=== PATIENT | male | born 1995 | race Caucasian/White ===

== ENCOUNTER 2017-09-20 17:32 | Emergency (ER) | payer SELFPAY ==
--- NOTE | 2017-09-20 20:33 | ER ---
Nurse's Notes [facility] Name: Maikel Mckinley Age: 22 yrs Sex: Male : 1995 Arrival Date: 09/20/2017 Time: 17:36 Bed 10 Private MD: Vinh Romo Diagnosis: Acute pharyngitis, unspecified Presentation: 09/20 17:58 Presenting complaint: Patient states: sore throat started yesterday, cough and nasal hj congestion started yesterday; denies fever;. Transition of care: patient was not received from another setting of care. Onset of symptoms was September 20, 2017. Care prior to arrival: None. 17:58 Method Of Arrival: Ambulatory hj 17:58 Acuity: ALEJANDRA 4 hj Triage Assessment: 17:59 General: Appears in no apparent distress. uncomfortable, Behavior is calm, cooperative, hj appropriate for age. Pain: Complains of pain in throat. EENT: No signs and/or symptoms were reported regarding the EENT system. Historical: - Allergies: 17:59 No Known Allergies; hj - Home Meds: 17:59 None [Active]; hj - PMHx: 17:59 None; hj - PSHx: 17:59 None; hj - Immunization history:: Adult Immunizations up to date. - Social history:: Smoking status: unknown. Screenin:46 Abuse screen: Denies threats or abuse. Denies injuries from another. Nutritional aj1 screening: No deficits noted. Tuberculosis screening: No symptoms or risk factors identified. Fall Risk None identified. Assessment: 17:59 Respiratory: Airway is patent Respiratory effort is even, unlabored, Respiratory hj pattern is regular, symmetrical, Breath sounds are clear. EENT: Throat. 19:46 General: Appears in no apparent distress. uncomfortable, Behavior is calm, cooperative, aj1 appropriate for age. Pain: Complains of pain in left aspect of posterior pharynx and right aspect of posterior pharynx Pain does not radiate. Neuro: Level of Consciousness is awake, alert, obeys commands, Oriented to person, place, time, situation. Cardiovascular: Patient's skin is warm and dry. Respiratory: Reports cough that is persistent Airway is patent Respiratory effort is even, unlabored, Respiratory pattern is regular, symmetrical, Breath sounds are clear bilaterally. Denies shortness of breath. GI: No signs and/or symptoms were reported involving the gastrointestinal system. : No signs and/or symptoms were reported regarding the genitourinary system. EENT: Throat is reddened bilaterally Reports nasal congestion nasal discharge. Derm: No signs and/or symptoms reported regarding the dermatologic system. Skin is pink, warm \T\ dry. normal. Musculoskeletal: No signs and/or symptoms reported regarding the musculoskeletal system. Circulation, motion, and sensation intact. 20:59 Reassessment: Patient appears in no apparent distress at this time. No changes from aj1 previously documented assessment. Patient and/or family updated on plan of care and expected duration. Pain level reassessed. Patient is alert, oriented x 3, equal unlabored respirations, skin warm/dry/pink. Vital Signs: 17:59 BP 114 / 69; Pulse 71; Resp 18; Temp 97.6(TE); Pulse Ox 99% on R/A; Weight 81.65 kg; hj Height 5 ft. 5 in. (165.10 cm); Pain 3/10; 19:46 BP 124 / 52; Pulse 57; Resp 18; Pulse Ox 100% on R/A; aj1 20:59 BP 102 / 63; Pulse 55; Resp 18; Pulse Ox 99% ; aj1 17:59 Body Mass Index 29.95 (81.65 kg, 165.10 cm) ED Course: 17:36 Patient arrived in ED. rg4 17:36 Vinh Romo DO is Private Physician. rg4 17:58 Triage completed. hj 17:59 Arm band placed on right wrist. hj 19:36 Rona Khan, RN is Primary Nurse. aj1 19:38 Clinton Maloney MD is Attending Physician. tw4 19:46 Patient has correct armband on for positive identification. Call light in reach. aj1 19:46 No provider procedures requiring assistance completed. aj1 19:48 Flu and/or RSV swab sent to lab. Strep swab sent to lab. aj1 20:32 Vinh Romo DO is Referral Physician. tw4 20:59 Patient did not have IV access during this emergency room visit. aj1 Administered Medications: No medications were administered Outcome: 20:32 Discharge ordered by . tw4 21:00 Discharged to home ambulatory. aj1 21:00 Condition: good 21:00 Discharge instructions given to patient, Instructed on discharge instructions, follow up and referral plans. medication usage, Demonstrated understanding of instructions, follow-up care, medications, Prescriptions given X 1. 21:00 Patient left the ED. aj1 Signatures: Rona Khan RN RN aj1 Bird Hines RN RN hj Garcia, Rubi rg4 Clinton Maloney MD MD tw4 Corrections: (The following items were deleted from the chart) 18:01 17:59 Pulse 71bpm; Resp 18bpm; Pulse Ox 99% RA; Temp 97.6F Temporal; 81.65 kg; Height 5 hj ft. 5 in.; BMI: 29.9; Pain 3/10; hj
--- NOTE | 2017-09-20 20:33 | EDPHYS ---
Physician Documentation [facility] Name: Maikel Mckinley Age: 22 yrs Sex: Male : 1995 Arrival Date: 09/20/2017 Time: 17:36 Bed 10 Private MD: Demetrius [facility]ly [facility] ED Physician Clinton Maloney HPI: 09/20 20:30 This 22 yrs old Male presents to ER via Ambulatory with complaints of Sore tw4 Throat, Headache, Fever, Nausea. 20:30 The patient presents with sore throat. The patient describes throat pain as dry. Onset: tw4 The symptoms/episode began/occurred yesterday. Severity of symptoms: At their worst the symptoms were moderate, in the emergency department the symptoms are unchanged. Modifying factors: The symptoms are alleviated by nothing, the symptoms are aggravated by nothing. Associated signs and symptoms: The patient has no apparent associated signs or symptoms. The patient has not experienced similar symptoms in the past. Historical: - Allergies: 17:59 No Known Allergies; hj - Home Meds: 17:59 None [Active]; hj - PMHx: 17:59 None; hj - PSHx: 17:59 None; hj - Immunization history:: Adult Immunizations up to date. - Social history:: Smoking status: unknown. ROS: 20:30 Constitutional: Negative for fever, chills, and weight loss. tw4 20:30 Constitutional: Positive for 20:30 ENT: Positive for sore throat, Negative for injury or acute deformity, drainage from ear(s), ear pain, foreign body sensation, Gum pain hearing loss, pulling at ears. Exam: 20:31 Constitutional: This is a well developed, well nourished patient who is awake, alert, tw4 and in no acute distress. Head/Face: Normocephalic, atraumatic. 20:31 Cardiovascular: Regular rate and rhythm with a normal S1 and S2. No gallops, murmurs, or rubs. Normal PMI, no JVD. No pulse deficits. Respiratory: Lungs have equal breath sounds bilaterally, clear to auscultation and percussion. No rales, rhonchi or wheezes noted. No increased work of breathing, no retractions or nasal flaring. Abdomen/GI: Soft, non-tender, with normal bowel sounds. No distension or tympany. No guarding or rebound. No evidence of tenderness throughout. 20:31 ENT: External ear(s): are unremarkable, Ear canal(s): are normal, TM's: are normal, Posterior pharynx: erythema, that is mild. Vital Signs: 17:59 BP 114 / 69; Pulse 71; Resp 18; Temp 97.6(TE); Pulse Ox 99% on R/A; Weight 81.65 kg; hj Height 5 ft. 5 in. (165.10 cm); Pain 3/10; 19:46 BP 124 / 52; Pulse 57; Resp 18; Pulse Ox 100% on R/A; aj1 20:59 BP 102 / 63; Pulse 55; Resp 18; Pulse Ox 99% ; aj1 17:59 Body Mass Index 29.95 (81.65 kg, 165.10 cm) hj MDM: 19:38 Patient medically screened. tw4 20:31 Differential diagnosis: apthous ulcer, group A strep tonsillitis, pharyngitis, tw4 tonsillitis, viral syndrome. Data reviewed: vital signs, nurses notes. 09/20 19:06 Order name: Flu; Complete Time: 20:29 tw4 09/20 20:29 Interpretation: Within normal limits. tw4 09/20 19:06 Order name: Strep; Complete Time: 20:29 tw4 09/20 20:30 Interpretation: Within normal limits. tw4 09/20 20:22 Order name: Throat Culture EDMS Administered Medications: No medications were administered Disposition: 09/20/17 20:32 Discharged to Home. Impression: Acute pharyngitis, unspecified. - Condition is Stable. - Discharge Instructions: Pharyngitis, Salt Water Gargle, Sore Throat, Upper Respiratory Infection, Adult. - Prescriptions for Ibuprofen 800 mg Oral Tablet - take 1 tablet by ORAL route every 8 hours As needed take with food; 30 tablet. - Medication Reconciliation Form, Thank You Letter, Antibiotic Education, Prescription Opioid Use form. - Follow up: Vinh Romo DO; When: As needed; Reason: Recheck today's complaints, Continuance of care, Re-evaluation by your physician. - Problem is new. - Symptoms are unchanged. Signatures: Dispatcher [employer] EDMS Rona Khan RN RN aj1 Bird Hines RN RN hj Clinton Maloney MD MD tw4
== END 2017-09-20 21:00 | disposition home or self-care (01) ==
LOC: ER 17:32
DX: J02.9 Acute pharyngitis, unspecified (principal)
CPT/HCPCS: 87070; 87081; 87804; 99283